=== PATIENT | female | born 2000 ===

== ENCOUNTER 2020-11-28 08:32 | Inpatient (IN) | payer MEDICAID, OTHER ==
--- NOTE | 2020-11-28 09:25 | PCM.LDHP ---
L&D History of Present Illness - General Date of Service: 11/28/20 Admit Problem/Dx: Patient Status Order with Admit Dx/Problem 11/28/20 09:01 Patient Status [ADT] Routine Admission Diagnosis/Problem Admission Diagnosis/Problem 11/28/20 09:20 presenting to L&D at 37 6/7 weeks (MICHELLE: 12/13/20 by LMP) with reports of SROM; amnisure positive. Upon presentation, she was 2cm/100%/-2, soft, mortgage servicing specialist ior, vertex by yoli's; brooke approximately every two minutes. A+, Rubella immune, GBS negative. She transferred to our facility from [facility] in [place] at 37 weeks. notable for alcohol and marijuana use during first half of ; late to care (patient's first visit was around 24 weeks gestation). Reports she was unaware of the until then. Unremarkable course since then. UDS on 11/23/20 negative. Source of Information: Patient History Limitations: Reports: No Limitations - Related Data Allergies/Adverse Reactions: Allergies Allergy/AdvReac Type Severity Reaction Status Date / Time ceftriaxone sodium Allergy Syncope Verified 05/23/17 12:29 [From Rocephin] Home Medications: Home Meds medroxyPROGESTERone [Depo-Provera] 1 injection IM ASDIRECTED 06/15/15 [History] buPROPion [buPROPion XL] 150 mg PO DAILY 05/23/17 [History] hydrOXYzine HCL [hydrOXYzine] 1 tab PO TID PRN 05/23/17 [History] Past Medical History - Past Health History Medical/Surgical History: Denies Medical/Surgical History Social & Family History - Family History Family Medical History: No Pertinent Family History - Caffeine Use Caffeine Use: Reports: Coffee, Energy Drinks, Soda H&P Review of Systems - Review of Systems: Review Of Systems: See Below General: Reports: No Symptoms HEENT: Reports: No Symptoms Pulmonary: Reports: No Symptoms Cardiovascular: Reports: No Symptoms Gastrointestinal: Reports: No Symptoms Genitourinary: Reports: No Symptoms Musculoskeletal: Reports: No Symptoms Skin: Reports: No Symptoms Psychiatric: Reports: No Symptoms Neurological: Reports: No Symptoms Hematologic/Lymphatic: Reports: No Symptoms Immunologic: Reports: No Symptoms L&D Exam - Exam Exam: See Below - OB Specific Contraction Intensity: Mild to Moderate Movement: Active Heart Tones: Present Heart Rate (FHR) Variability: Moderate (6-25 bpm) Presentation: Vertex - Sanchez Score Sanchez Score Cervix Position: Posterior Sanchez Score Consistency: Soft Sanchez Score Effacement: >80% Sanchez Score Dilation: 1-2 cm Sanchez Score Infant's Station: -2 Sanchez Score Total: 7 - Exam General: Alert, Oriented, Cooperative Lungs: Normal Respiratory Effort Cardiovascular: Regular Rate, Regular Rhythm GI/Abdominal Exam: Soft, Non-Tender Rectal Exam: Deferred Genitourinary: Deferred Back Exam: Normal Inspection, Full Range of Motion Extremities: Normal Inspection, Normal Range of Motion, Non-Tender, Normal Capillary Refill Skin: Warm, Dry, Intact Neurological: Strength Equal Bilateral, Normal Speech, Normal Tone, Sensation Intact Psychiatric: Alert, Normal Affect, Normal Mood - Patient Data Lab Results Last 24 hrs: Laboratory Results - last 24 hr 11/28/20 Range/Units 08:55 Membrane Rupture POSITIVE - Problem List (1) Supervision of normal IUP (intrauterine ) in primigravida SNOMED Code(s): 71155550, 362556434, 232694869, 241914670 ICD Code: Z34.00 - ENCNTR FOR SUPRVSN OF NORMAL FIRST , UNSP TRIMESTER Status: Acute Priority: High Current Visit: Yes Qualifiers: Trimester: third trimester Qualified Code(s): Z34.03 - Encounter for supervision of normal first , third trimester (2) Late care affecting SNOMED Code(s): 526727668 ICD Code: O09.30 - SUPRVSN OF PREG W INSUFFICIENT ANTENAT CARE, UNSP TRIMESTER Status: Acute Priority: High Current Visit: Yes (3) History of marijuana use SNOMED Code(s): 747242101 ICD Code: Z87.898 - PERSONAL HISTORY OF OTHER SPECIFIED CONDITIONS Status: Acute Priority: High Current Visit: Yes (4) Alcohol consumption during SNOMED Code(s): 075965954 ICD Code: O99.310 - ALCOHOL USE COMPLICATING , UNSPECIFIED TRIMESTER Status: Acute Priority: High Current Visit: Yes Qualifiers: Trimester: third trimester Qualified Code(s): O99.313 - Alcohol use complicating , third trimester Problem List Initiated/Reviewed/Updated: Yes Orders Last 24hrs: Active Orders 24 hr Category Date Time Status Patient Status [ADT] Routine ADT 11/28/20 09:01 Active Non Stress Test [RC] PER UNIT ROUTINE Care 11/28/20 09:01 Active Up ad Gabriela [RC] ASDIRECTED Care 11/28/20 09:01 Active Vaginal Exam [RC] Click to Edit Care 11/28/20 09:01 Active Vital Signs [RC] PER UNIT ROUTINE Care 11/28/20 09:01 Active Resuscitation Status Routine Resus Stat 11/28/20 09:01 Ordered Assessment/Plan Comment:: Admit A: presenting to L&D at 37 6/7 weeks (MICHELLE: 12/13/20 by LMP) with reports of SROM; amnisure positive. Upon presentation, she was 2cm/100%/-2, soft, posterior, vertex by yoli's; brooke approximately every two minutes. A+, Rubella immune, GBS negative. She transferred to our facility from [facility] in [place] at 37 weeks. notable for alcohol and marijuana use during first half of ; late to care (patient's first visit was around 24 weeks gestation). Reports she was unaware of the until then. Unremarkable course since then. UDS on 11/23/20 negative. P: Anticipate ; epidural PRN; Dr. Guillen updated.
[2020-11-28] MEDS ORDERED: Butorphanol 1 MG/ML SDV IVPUSH PRN (09:49)
[2020-11-28] MEDS ORDERED: Tranexamic Acid 1,000 MG in Sodium Chloride 0.9% 100 ML IV PRN (09:49)
[2020-11-28] MEDS ORDERED: Nalbuphine 10 MG/1 ML Vial IVPUSH PRN (09:49)
[2020-11-28] MEDS ORDERED: Lidocaine 1% 50 ML MDV INJECT PRN (09:49)
[2020-11-28] MEDS ORDERED: Misoprostol 200 MCG Tab PO PRN (09:49)
[2020-11-28] MEDS ORDERED: Ondansetron 4 MG/2 ML SDV IVPUSH PRN (09:49)
[2020-11-28] MEDS ORDERED: Water For Irrigation,Sterile 1,000 ML Container IRR PRN (09:49)
[2020-11-28] MEDS ORDERED: Methylergonovine 0.2 MG/1 ML Amp IM PRN (09:49)
[2020-11-28] MEDS ORDERED: Sodium Chloride 0.9% 10 ML SDV IV PRN (09:49)
[2020-11-28] MEDS ORDERED: Carboprost Tromethamine 250 MCG/1 ML Amp IM PRN (09:49)
[2020-11-28] MEDS ORDERED: Sodium Chloride 0.9% 10 ML Syringe FLUSH PRN (09:49)
[2020-11-28] MEDS ORDERED: Sodium Chloride 0.9% 2.5 ML Syringe FLUSH PRN (09:49)
[2020-11-28] MEDS ORDERED: Oxytocin/0.9 % Sodium Chloride 30 UNIT/500 ML BAG IV SCH ×2 (10:00→14:30)
[2020-11-28] MEDS ORDERED: Terbutaline 1 MG/ML SDV SUBCUT PRN (14:26)
[2020-11-28] MEDS: Lactated Ringers 1,000 ML IV SCH ×3 (14:45→20:01)
[2020-11-28] MEDS ORDERED: Ropivacaine HCl/PF 200 ML ONE (18:53)
[2020-11-28] MEDS ORDERED: Bupivacaine 0.25% 30 ML SDV ONE (18:53)
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
[2020-11-29] MEDS: Lactated Ringers 1,000 ML IV SCH (03:05)
[2020-11-29] MEDS ORDERED: oxyCODONE 5 MG Tab PO PRN (04:47)
[2020-11-29] MEDS ORDERED: Bisacodyl 10 MG Supp RECTAL PRN (04:47)
[2020-11-29] MEDS ORDERED: Acetaminophen 500 MG Tab PO PRN ×2 (04:47)
[2020-11-29] MEDS ORDERED: Ibuprofen 400 MG Tab PO PRN (04:47)
[2020-11-29] MEDS ORDERED: Benzocaine/Menthol 20%-0.5% Spray 78 GM Cannister TOP PRN (04:47)
[2020-11-29] MEDS ORDERED: Lanolin 100% Cream 7 GM Tube TOP PRN (04:47)
[2020-11-29] MEDS: Ibuprofen 800 MG Tab PO PRN ×2 (05:18→19:57)
[2020-11-29] MEDS: Witch Hazel Medicated Pads 40/Jar TOP PRN ×2 (07:03→16:57)
[2020-11-29] MEDS: Docusate Sodium 100 MG Cap PO PRN (07:04)
[2020-11-30] MEDS: Docusate Sodium 100 MG Cap PO PRN (09:21)
--- NOTE | 2020-11-30 10:56 | OR ---
SURGEON: Demarco Guillen MD DATE OF PROCEDURE: 11/29/2020 Ms. Saleh is 20 years old. She is primigravida. She has transferred her care to us late in this from [place]. The patient has poor history of visit and care. She has a history of using marijuana and meth during this ; however, she is 38+ weeks. She has presented to Labor and Delivery today with spontaneous rupture of membranes that was confirmed and in regular contraction, and at the time of admission, she was 2 to 3, 80, vertex, - 2. She progressed rather slowly. She required Pitocin augmentation. She had epidural anesthesia for labor analgesia and then she progressed. Again, she became complete-complete, and she pushed in excess of 2-1/2 hours. Because of the dense epidural and maternal exhaustion, I was consulted for possibility for vacuum extraction. At the time of my arrival, the patient's vital signs was essentially normal. heart rate was category 1 and her vaginal examination revealed that she has completely dilated vertex and in the occiput posterior and at +1, maybe +2 station. After explaining the situation to the parent and consulted with them, they agreed to vacuum extraction. Edger Technician, Dr. Morrow was in attendance for the vacuum extraction and kiwi vacuum extraction was used. With the patient pushing and we were pulling, we were able to accomplish vaginal delivery in an occiput posterior position. The fetus once was delivered cried immediately. score later on reported to be 8 and 9. The weight is pending. The placenta delivered spontaneous, complete, and intact. Episiotomy was needed and it extended to about 2nd degree laceration and then after delivering the placenta which is delivered spontaneous and complete, a repair of the episiotomy is performed by me with 3-0 Vicryl in layer. Estimated blood loss in this delivery is 350 to 400 mL and heart rate was category 1 through the entire process of the labor and delivery. There was no complication in the labor and delivery of this patient. ANU / HOLLIE /[id number]
--- NOTE | 2020-11-30 11:01 | PCM.DCSUM1 ---
Discharge Summary - Hospital Course Free Text/Narrative:: Yazmin is a 20 yo current PPD1 S/P OVD to term . A pos, RI, GBS negative. She transferred to our facility from [facility] in [place] at 37 weeks. notable for alcohol and marijuana use during first half of ; late to care (patient's first visit was around 24 weeks gestation). Reports she was unaware of the until then. Unremarkable course since then. UDS on 11/23/20 negative. Patient has no complaints or concerns at this time. Patient is breast and bottle feeding well. Patient reports she is eating, voiding, ambulating independently and without difficulty. Patient denies any problems or concerns at this time except mild- moderate intermittent uterine cramping relieved with Tylenol and Ibuprofen. Patient reports small vaginal bleeding with no clots. Patient verbalizes her readiness to be discharged home today. Social work consult completed d/t social issues, plans to F/U in office with Wen in 1 week. Diagnosis: Stroke: No - Discharge Data Discharge Date: 11/30/20 Discharge Disposition: Home, Self-Care 01 Condition: Good - Referral to Home Health Primary Care Physician: PCP None - Discharge Diagnosis/Problem(s) (1) Vacuum-assisted vaginal delivery SNOMED Code(s): 12042805039221114 ICD Code: Z37.9 - OUTCOME OF DELIVERY, UNSPECIFIED Status: Acute Priority : High Current Visit: Yes - Patient Summary/Data Consults: Consultations 11/29/20 20:28 Consult to Case Management/Primary Care Sales Representative [CONS] Routine - Patient Instructions Diet: Usual Diet as Tolerated, Regular Diet as Tolerated, Drink 8-10+ Glasses/Day Activity: As Tolerated, No Strenuous Activities, Rest and Relax Today Driving: May Drive Today Showering/Bathing: May Shower Showering/Bathing, Other: May sitz bathe for perineal comofrt Notify Provider of: Fever, Increased Pain, Swelling and Redness, Drainage, Nausea and/or Vomiting - Discharge Plan *PRESCRIPTION DRUG MONITORING PROGRAM REVIEWED*: No *COPY OF PRESCRIPTION DRUG MONITORING REPORT IN PATIENT VIBHA: No Prescriptions/Med Rec: Ibuprofen [Motrin] 800 mg PO Q8H PRN #30 tablet PRN Reason: Pain Home Medications: Home Meds Ferrous Sulfate [Iron] 65 mg PO 5XDAY 11/28/20 [History] Pnv No.95/Ferrous Fum/Folic AC [ Caplet] 1 each PO DAILY 11/28/20 [History] Ibuprofen [Motrin] 800 mg PO Q8H PRN #30 tablet 11/30/20 [Rx] Oxygen Therapy Mode: Room Air - Discharge Summary/Plan Comment DC Time >30 min.: No Discharge Summary/Plan Comment: Hemodynamically stable, afebrile. Independent with ADLs, pain well controlled. Ibuprofen prescription sent to pharmacy. Warning S/Ss, when to call for help discussed, no questions or concerns. F/U in office in 1 and 6 weeks for po stpartum visit or sooner if problem arise. - General Info Date of Service: 11/30/20 Admission Dx/Problem (Free Text: Patient Status Order with Admit Dx/Problem 11/28/20 09:01 Patient Status [ADT] Routine Admission Diagnosis/Problem Admission Diagnosis/Problem 11/28/20 09:20 presenting to L&D at 37 6/7 weeks (MICHELLE: 12/13/20 by LMP) with reports of SROM; amnisure positive. Upon presentation, she was 2cm/100%/-2, soft, p osterior, vertex by yoli's; brooke approximately every two minutes. A+, Rubella immune, GBS negative. She transferred to our facility from [facility] in [place] at 37 weeks. notable for alcohol and marijuana use during first half of ; late to care (patient's first visit was around 24 weeks gestation). Reports she was unaware of the until then. Unremarkable course since then. UDS on 11/23/20 negative. Functional Status: Reports: Pain Controlled, Ambulating, Urinating - Review of Systems General: Reports: No Symptoms HEENT: Reports: No Symptoms Pulmonary: Reports: No Symptoms Cardiovascular: Reports: No Symptoms Gastrointestinal: Reports: No Symptoms Genitourinary: Reports: No Symptoms Musculoskeletal: Reports: No Symptoms Skin: Reports: No Symptoms Neurological: Reports: No Symptoms Psychiatric: Reports: No Symptoms - Patient Data Vitals - Most Recent: Last Vital Signs Temp 97.4 F 11/30/20 08:12 Pulse 78 11/30/20 08:12 Resp 18 11/30/20 08:12 BP 124/76 11/30/20 08:12 Pulse Ox 100 11/30/20 08:12 Weight - Most Recent: 124 lb I&O - Last 24 hours: Intake & Output 11/29/20 11/30/20 11/30/20 22:59 06:59 14:59 Intake Total 1000 Output Total 1200 350 Balance -200 -350 Lab Results - Last 24 hrs: Laboratory Results - last 24 hr 11/30/20 Range/Units 05:05 Hgb 9.6 L (12.0-16.0) g/dL Hct 27.5 L (36.0-46.0) % Med Orders - Current: Current Medications Acetaminophen (Acetaminophen 500 Mg Tab) 500 mg PO Q4H PRN PRN Reason: Pain (mild 1-3) Acetaminophen (Acetaminophen 500 Mg Tab) 1,000 mg PO Q4H PRN PRN Reason: Pain (mild 1-3) Last Admin: 11/29/20 05:19 Dose: 1,000 mg Documented by: Benzocaine/Menthol (Benzocaine/Menthol 20%-0.5% [place] 78 Gm Cannister) 78 gm TOP ASDIRECTED PRN PRN Reason: Perineal Comfort Measure Last Admin: 11/29/20 07:03 Dose: 78 gm Documented by: Bisacodyl (Bisacodyl 10 Mg Supp) 10 mg RECTAL ONETIME PRN PRN Reason: Constipation Docusate Sodium (Docusate Sodium 100 Mg Cap) 100 mg PO Q12H PRN PRN Reason: Constipation Last Admin: 11/30/20 09:21 Dose: 100 mg Documented by: Emollient Ointment (Lanolin 100% Cream 7 Gm Tube) 0 gm TOP ASDIRECTED PRN PRN Reason: Sore Nipples Last Admin: 11/29/20 07:04 Dose: 7 gm Documented by: Ibuprofen (Ibuprofen 400 Mg Tab) 400 mg PO Q4H PRN PRN Reason: Pain (mild 1-3) Ibuprofen (Ibuprofen 800 Mg Tab) 800 mg PO Q6H PRN PRN Reason: Pain (mild 1-3) Last Admin: 11/29/20 19:57 Dose: 800 mg Documented by: Oxycodone HCl (Oxycodone 5 Mg Tab) 5 mg PO Q2H PRN PRN Reason: Pain (severe 7-10) Witch [place] (Witch [place] Medicated Pads 40/Jar) 1 pad TOP ASDIRECTED PRN PRN Reason: comfort care Last Admin: 11/29/20 16:57 Dose: 1 tub Documented by: Discontinued Medications Bupivacaine HCl (Bupivacaine 0.25% 30 Ml Sdv) Confirm Administered Dose 30 ml .ROUTE .[employer] ONE Stop: 11/28/20 18:54 Butorphanol Tartrate (Butorphanol 1 Mg/Ml Sdv) 1 mg IVPUSH Q1H PRN PRN Reason: Pain (severe 7-10) Last Admin: 11/28/20 17:22 Dose: 1 mg Documented by: Carboprost Tromethamine (Carboprost Tromethamine 250 Mcg/1 Ml Amp) 250 mcg IM ASDIRECTED PRN PRN Reason: Post Hemorrhage Lactated Ringer's (Ringers, Lactated) 1,000 mls @ 150 mls/hr IV ASDIRECTED SUMAYA Last Admin: 11/29/20 03:05 Dose: 150 mls/hr Documented by: Oxytocin/Sodium Chloride (Oxytocin 30 Unit/500 Ml-Ns) 30 unit in 500 mls @ 999 mls/hr IV TITRATE SUMAYA Tranexamic Acid 1,000 mg/ (Sodium Chloride) 110 mls @ 660 mls/hr IV ONETIME PRN PRN Reason: Bleeding Oxytocin/Sodium Chloride (Oxytocin 30 Unit/500 Ml-Ns) 30 unit in 500 mls @ 2 mls/hr IV TITRATE SUMAYA; Protocol Last Titration: 11/28/20 18:15 Dose: 10 munits/min, 10 mls/hr Documented by: Ropivacaine (Naropin 0.2%) Confirm Administered Dose 200 mls @ as directed .ROUTE .[employer] ONE Stop: 11/28/20 18:54 Lidocaine HCl (Lidocaine 1% 50 Ml Mdv) 50 ml INJECT ONETIME PRN PRN Reason: Laceration repair Methylergonovine Maleate (Methylergonovine 0.2 Mg/1 Ml Amp) 0.2 mg IM ASDIRECTED PRN PRN Reason: Post Hemorrhage Misoprostol (Misoprostol 200 Mcg Tab) 200 mcg PO ONETIME PRN PRN Reason: Post Hemorrhage Nalbuphine HCl (Nalbuphine 10 Mg/1 Ml Vial) 10 mg IVPUSH Q1H PRN PRN Reason: Pain (severe 7-10) Ondansetron HCl (Ondansetron 4 Mg/2 Ml Sdv) 4 mg IVPUSH Q4H PRN PRN Reason: Nausea/Vomiting Sodium Chloride (Sodium Chloride 0.9% 10 Ml Syringe) 10 ml FLUSH ASDIRECTED PRN PRN Reason: Keep Vein Open Sodium Chloride (Sodium Chloride 0.9% 2.5 Ml Syringe) 2.5 ml FLUSH ASDIRECTED PRN PRN Reason: Keep Vein Open Sodium Chloride (Sodium Chloride 0.9% 10 Ml Sdv) 10 ml IV ASDIRECTED PRN PRN Reason: IV Use Sterile Water (Water For Irrigation,Sterile 1,000 Ml Container) 1,000 ml IRR ASDIRECTED PRN PRN Reason: delivery Terbutaline Sulfate (Terbutaline 1 Mg/Ml Sdv) 0.25 mg SUBCUT ASDIRECTED PRN PRN Reason: Tacysystole - Exam General: Reports: Alert, Oriented, Cooperative, No Acute Distress HEENT: Reports: Pupils Equal, Mucous Membr. Moist/[place] Neck: Reports: Supple Lungs: Reports: Clear to Auscultation, Normal Respiratory Effort Cardiovascular: Reports: Regular Rate, Regular Rhythm GI/Abdominal Exam: Normal Bowel Sounds, Soft, Non-Tender, No Organomegaly, Pelvis Stable (Female) Exam: Normal External Exam, Enlarged Uterus, Vaginal Bleeding Rectal (Female) Exam: Normal Exam, Normal Rectal Tone Back Exam: Reports: Normal Inspection, Full Range of Motion Extremities: Normal Inspection, Normal Range of Motion, Non-Tender, No Pedal Edema, Normal Capillary Refill Skin: Reports: Warm, Dry, Intact Neurological: Reports: No New Focal Deficit Psy/Mental Status: Reports: Alert, Normal Affect, Normal Mood
[2020-11-30 17:19] VITALS: BP 122/68; PULSE 99
== END 2020-11-30 17:16 | disposition home or self-care (01) | DRG 807 ==
LOC: MW.OBCHECK 08:32 → MW.OB 08:34 → MW.OBCHECK 14:46 → MW.OB 14:46 → OBSVTOIN 11-29 04:26 → MW.OB 11-29 12:53
PROVIDERS: ADMIT Obstetrics & Gynecology; ATTEND Obstetrics & Gynecology
PROC: 10E0XZZ Delivery of Products of Conception, External Approach (ICD-10-PCS; principal; 2020-11-29)
PROC: 0W8NXZZ Division of Female Perineum, External Approach (ICD-10-PCS; 2020-11-29)
PROC: 3E0R3BZ Introduction of Anesthetic Agent into Spinal Canal, Percutaneous Approach (ICD-10-PCS; 2020-11-29)
DX: O99.314 Alcohol use complicating childbirth (principal); Z37.0 Single live birth; Z72.89 Other problems related to lifestyle; O70.1 Second degree perineal laceration during delivery; Z3A.38 38 weeks gestation of pregnancy; Z20.822 Contact with and (suspected) exposure to COVID-19
CPT/HCPCS: 01967; 36415; 51702; 59025; 59409; 80305-QW; 84112; 85014; 85018; 85027; 86592; 86850; 86900; 86901; A9270-GY; J0595; J2590; J2795; J3490; J7120; U0002